=== PATIENT | female | born 1985 | race Asian ===

== ENCOUNTER → 2017-02-16 | Outpatient (CLI) | payer OTHER ==
[~2017-02-16] MED LIST: FERR325T51 PO; PRENTAB26 PO
== END | disposition home or self-care (01) ==
LOC: C.PAPS 14:10
PROVIDERS: ATTEND Physician Assistant
DX: Z01.419 Encounter for gynecological examination (general) (routine) without abnormal findings (principal)

== ENCOUNTER 2019-01-27 19:08 | Inpatient (IN) ==
--- OUTSIDE RECORDS SUMMARY | 2019-01-27 19:10 | External Medical Summary | Continuity of Care Document ---
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) Exposure to communicable disease (V01.9) (Z20.9) Allergies and Adverse Reactions No Known Drug Allergies (Allergy) Medications Iron TABS Refills: 0 DHA Complete CAPS Refills: 0 TABS Refills: 0 Procedures Non-stress test Date: 27-Jan-2019 Non-stress test Date: 27-Jan-2019 History of Oral Surgery Status: Complete d Immunizations Influenza (Whole) On: 26-Jun-2015 10:25 Lot #: [id number], [employer] Tdap (Adacel) On: 01-Oct-2015 10:47 Lot #: [id number], [employer] Fluzone Quadrivalent 0.5 ML Intramuscular Suspension On: May-2018 16:18 Lot #: [id number], [employer]FI PASTEUR Tdap (Adacel) On: 01-Nov-2018 10:09 Lot #: [id number], [employer]OFI PASTEUR Family History Father Family history of diabetes mellitus (V18.0) (Z83.3) Status: Active Mother Family history of delivery (644.21) (O60.10X0) Statu s: Active Sister Family history of gestational diabetes (V18.0) (Z83.3) Statu s: Active Plan of Treatment Planned Encounters Appointment; Arun Isidro M.D. Start: 02-Feb-2019 10:40 Request Planned Observations Planned Goals not documented Results Non-stress test (Pending) Laboratory: In House 2-May-2019 11:02 Non-Stress Test Reactive Vital Signs 27-Jan-2019 10:24 Systolic 104 mm[Hg] Diastolic 64 mm[Hg] BMI Calculated 26.68 kg/m2 Weight 136.6 lb Height 60 in BSA Calculated 1.59 m2 20-Jan-2019 10:10 Systolic 110 mm[Hg] Diastolic 70 mm[Hg] BMI Calculated 26.44 kg/m2 Weight 135.4 lb Height 60 in BSA Calculated 1.58 m2 13-Jan-2019 9:50 Systolic 96 mm[Hg] Diastolic 56 mm[Hg] BMI Calculated 26.4 kg/m2 Weight 135.2 lb Height 60 in BSA Calculated 1.58 m2 05-Jan-2019 15:15 Systolic 110 mm[Hg] Diastolic 68 mm[Hg] BMI Calculated 26.37 kg/m2 Weight 135 lb Height 60 in BSA Calculated 1.58 m2 29-Dec-2018 9:07 Systolic 104 mm[Hg] Diastolic 62 mm[Hg] BMI Calculated 26.33 kg/m2 Weight 134.8 lb Height 60 in BSA Calculated 1.58 m2 Encounters Appointment; Abbie Power DO 27-Jan-2019 11:00 Encounter Diagnosis: Problem not documented Appointment; OB SC1, Nonstress Test 27-Jan-2019 10:30 Encounter Diagnosis: Problem not documented Appointment; Ayaka Merritt M.D. 20-Jan-2019 10:10 Encounter Diagnosis: Problem not documented Appointment; Cathy Cantu M.D. 13-Jan-2019 10:00 Encounter Diagnosis: Problem not documented Appointment; Abbie Power DO 05-Jan-2019 14:50 Encounter Diagnosis: Problem not documented Appointment; Nidia Sanders M.D. 29-Dec-2018 9:00 Encounter Diagnosis: Problem not documented Appointment; Pb Freeman M.D. 15-Dec-2018 9:50 Encounter Diagnosis: Problem not documented Appointment; Tatiana Burgos M.D. 29-Nov-2018 9:30 Encounter Diagnosis: Problem not documented Appointment; Abbie Power DO 15-Nov-2018 10:50 Encounter Diagnosis: Problem not documented Appointment; Tatiana Burgos M.D. 01-Nov-2018 9:50 Encounter Diagnosis: Problem not documented Appointment; Cathy Cantu M.D. 04-Oct-2018 9:40 Encounter Diagnosis: Problem not documented Appointment; Tatiana Burgos M.D. 06-Sep-2018 10:20 Encounter Diagnosis: Problem not documented Appointment; OBGYN SC1, Ultrasound 06-Sep-2018 9:15 Encounter Diagnosis: Problem not documented Appointment; Pb Freeman M.D. 09-Aug-2018 10:30 Encounter Diagnosis: Problem not documented Appointment; Nohemi Hein M.D. 12-Jul-2018 10:30 Encounter Diagnosis: Problem not documented Appointment; OB SC1, Procedure Rm 14-Jun-2018 15:30 Encounter Diagnosis: Problem not documented Appointment; Abbie Power, DO 14-Jun-2018 15:30 Encounter Diagnosis: Problem not documented Appointment; OB SC1, Nursing Station 07-Jun-2018 8:45 Encounter Diagnosis: Problem not documented Appointment; Nohemi Hein M.D. 12-Oct-2017 13:30 Encounter Diagnosis: Problem not documented Appointment; Nidia Whiteside PA-C 09-Jul-2017 13:20 Encounter Diagnosis: Problem not documented Appointment; Dmitry Mccloud Au.D.|[facility] 09-Jul-2017 13:00 Encounter Diagnosis: Problem not documented Appointment; Nidia Whiteside PA-C 23-Jun-2017 15:00 Encounter Diagnosis: Problem not documented Appointment; Dmitry Mccloud Au.D.|[facility] 23-Jun-2017 14:40 Encounter Diagnosis: Problem not documented Appointment; Laura Francis PA-C 16-Feb-2017 10:10 Encounter Diagnosis: Problem not documented Appointment; Arun Isidro M.D. 02-Feb-2019 10:40 Encounter Diagnosis: Problem not documented"
[2019-01-27] MEDS ORDERED: OXYTOCIN 30 UNITS/500 ML BAG IV PRN (19:35)
[2019-01-27] MEDS ORDERED: PENICILLIN G POTASSIUM 6 MU in DEXTROSE 5% 250 ML IV STA (19:35)
[2019-01-27] MEDS ORDERED: LACTATED RINGER'S 1,000 ML IV PRN ×2 (19:35→21:37)
--- NOTE | 2019-01-27 19:48 | History & Physical Report ---
Date of Service January 27, 2019 Assessment & Plan (1) Normal labor: IUP at 40+ week in active labor & GBS (+) Start PCN G now undecided about epidural at this time anticipate vaginal Present on Admission?: Yes History of Present Illness Primary Care Provider: NO PCP Patient is a 33 yo female EDC 01/25/19 who presents at 40+ weeks in active labor. contractions have been about 6-7 minutes apart for over 2 hours. (+) bloody show, (-)SPROM uncomplicated O positive rubella Immune RPR NR HBsAg negative HIV negative GBS positive GC/chlam negative cell free DNA- low risk anatomy scan -normal Allergies Allergy/AdvReac Type Severity Reaction Status Date / Time No Known Allergies Allergy Unverified 01/02/16 20:22 Home Medications Home Medications Medication Instructions Recorded Confirmed Type FERROUS SULFATE (IRON SUPPLEMENT) 1 tab PO DAILY 30 Days #30 tab 01/02/16 History Multivit/Min/Iron/Fol Ac/Pren 1 tab PO DAILY #0 tab 01/02/16 History ( Vitamin) Patient History Social History Preferred Language: Cameroonian Communication Ability: Effective 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 Beliefs That Will Affect Care: None marital status: Current Living Situation: Family Other Information That Helps Us Care for You: No Feels Safe at Home: Yes Safety Concerns: Feels Safe At This Time Smoking Status: Never smoker Do You Dip or Chew Tobacco: No Second Hand Exposure: No Tobacco Cessation Education Requested by Patient: No Hx Alcohol Use: No Hx Substance Use: No Review of Systems All systems reviewed & are unremarkable except as noted in HPI & below Physical Exam Constitutional: WD/WN, vitals as above Respiratory: normal respiratory effort, lungs clear to auscultation Cardiovascular: RRR, no murmur, no edema Gastrointestinal (Abdomen): normal bowel sounds, soft, nontender, no hepatosplenomegaly Genitourinary: OB Exam Abdomen: + vertex, + estimated weight (6-7 pounds) and + regular contractions (6-7 minutes) Manual OB Exam: + cervical dilation 5 cm, + cervical effacement 90% and + station -2 OB Exam Monitor Tracing: + external FHT monitor used, + external uterine monitor used, + category I and + normal FHT variability Results & Data Vital Signs (Past 12 Hours) Vital Signs Temp Resp 01/27/19 19:13 97.7 F 18
[2019-01-27 19:59] LABS: Hematocrit (blood only) 36.4 % (37-47); Hemoglobin 12.6 g/dL (12.0-16.0); Mean Platelet Volume 10.3 fL (7.4-10.4); Platelet Count 135 K/uL (130-400); RDW Coefficient of Variation 14.4 % (11.5-14.5); RDW Standard Deviation 49.8 fL (36.4-46.3); Red Blood Count 3.83 M/uL (4.2-5.4); White Blood Count 7.05 K/uL (4.8-10.8)
[2019-01-27 20:01] LABS: Mean Corpuscular Hgb Conc 34.6 g/dL (32-36)
[2019-01-27] MEDS: LACTATED RINGER'S 1,000 ML IV SCH ×2 (20:15→20:49)
[2019-01-27] MEDS ORDERED: BUPIVACAINE 0.25% 30 ML VIAL ONE (20:42)
[2019-01-27] MEDS ORDERED: ePHEDrine sulfate 50 MG/ML AMP ONE (20:42)
[2019-01-27] MEDS ORDERED: fentaNYL citrate 100 MCG/2 ML VIAL ONE (20:43)
[2019-01-27] MEDS ORDERED: fentaNYL 2MCG/ML ROPIV 1.25MG/ML 100 ML BAG EPI ONE (20:44)
--- NOTE | 2019-01-27 21:16 | Anesthesiology Consultation ---
Date of Service January 27, 2019 Assessment & Plan Chart Review Chart Review: Patient NOT seen in Pre Admission Testing and Acceptable Risk for Labor Epidural Consults Requested none ASA ASA2 Proposed Anesthesia Anesthesia Type: Labor Epidural Risk / Benefits Reviewed With: PT / POA / Parent / Guardian, Accepts Plan and Informed Consent Obtained History Height/Weight Height: 5 ft Weight: 61.689 kg Allergies Allergy/AdvReac Type Severity Reaction Status Date / Time No Known Allergies Allergy Unverified 01/02/16 20:22 Medications Home Medications Medication Instructions Recorded Confirmed Last Taken ferrous sulfate See Rx Instructions .ROUTE .COMPLEX 01/27/19 01/27/19 01/26/19 12:00 vit-iron fum-folic ac 1 tab PO DAILY 01/27/19 01/27/19 01/27/19 08:00 [ Vitamin] Active Medications Generic Name Dose Route Start Last Admin Trade Name Freq PRN Reason Stop Dose Admin Lactated Ringer's 1,000 mls @ 999 mls/hr 01/27/19 19:35 01/27/19 20:50 Lr IV 02/26/19 19:34 Infused .Q1H1M PRN Infusion Pre-Anesthesia Lactated Ringer's 1,000 mls @ 125 mls/hr 01/27/19 19:45 01/27/19 20:49 Lr IV 01/29/19 19:44 125 mls/hr .Q8H KAY Administration NPO Date Last Intake of Fluids: 01/27/19 Time Last Intake of Fluids: 17:30 Date Last Intake of Solids: 01/27/19 Time Last Intake of Solids: 17:30 Past Medical History Medical History History of tooth extraction Exercise / Class Metabolic Activity II 4-5 Yardwork/Stairs/Walk up hill Past Anesthesia History No Hx of Anesthesia Complications and No Family Hx of Anesthesia Complications History of PONV No Hx of PONV and No Hx of Motion Sickness Social History Smoking Status: Never smoker Do You Dip or Chew Tobacco: No Hx Alcohol Use: No Hx Substance Use: No substance use type: does not use Physical Exam Vital Signs Last Vital Signs Temp 36.5 C 01/27/19 19:13 Pulse 78 01/27/19 21:11 Resp 18 01/27/19 19:13 BP 108/71 01/27/19 21:00 Pulse Ox 100 01/27/19 21:11 Constitutional not obese ENMT Mouth: + small oral opening; no dentition abnormality Thyromental Distance: < 3.5 Finger Breadths Mallampati Class: II Neck normal visual inspection and trachea midline; neck extension not limited Respiratory normal respiratory effort Auscultation: lungs clear to auscultation bilaterally Cardiovascular Rate/Rhythm: regular rate and regular rhythm Heart Sounds: no murmur Musculoskeletal Spine: lumbar spine normal to inspection; normal cervical ROM Neurologic moves all extremities Motor/Sensory: no sensory deficit Psychiatric Orientation: alert and oriented x 3 Testing Laboratory Results 01/27/19 19:50
[2019-01-27] MEDS ORDERED: NALBUPHINE HCL INJ 10 MG/ML AMP IV PRN (21:37)
[2019-01-27] MEDS ORDERED: PROMETHAZINE HCL 25 MG in SODIUM CHLORIDE 0.9% 50 ML IV PRN (21:37)
[2019-01-27] MEDS ORDERED: ONDANSETRON INJ 2 MG/ML 2 ML VIAL IV PRN (21:37)
[2019-01-27] MEDS ORDERED: NALOXONE HCL 0.4 MG/1 ML VIAL/CARP IV PRN (21:37)
[2019-01-27] MEDS ORDERED: DiphenhydrAMINE HCL 50 MG/ML VIAL IV PRN (21:37)
[2019-01-27] MEDS ORDERED: ePHEDrine sulfate 50 MG/ML AMP IV PRN (21:37)
[2019-01-27] MEDS ORDERED: NALOXONE HCL 1 MG in SODIUM CHLORIDE 0.9% 1000ML 1,000 ML IV PRN (21:37)
[2019-01-27] MEDS ORDERED: fentaNYL 2MCG/ML ROPIV 1.25MG/ML 100 ML BAG EPI PRN (21:37)
[2019-01-27] MEDS: PENICILLIN G POTASSIUM 3 MU in DEXTROSE 5% 100 ML IV PRN (23:41)
[2019-01-28] MEDS: PENICILLIN G POTASSIUM 3 MU in DEXTROSE 5% 100 ML IV PRN (03:40)
[2019-01-28] MEDS ORDERED: OXYTOCIN 30 UNITS/500 ML BAG IV PRN (04:55)
[2019-01-28] MEDS ORDERED: OXYCODONE/ACETAMINOPHEN 5mg/325mg TAB PO PRN (04:55)
[2019-01-28] MEDS ORDERED: ACETAMINOPHEN 325 MG TAB PO PRN (04:55)
[2019-01-28] MEDS ORDERED: BENZOCAINE 20% AER SPR 82.5 GM CAN EXT PRN (04:55)
[2019-01-28] MEDS ORDERED: SUPERCREAM 0.870% 15 GM JAR EXT PRN (04:55)
[2019-01-28] MEDS ORDERED: BISACODYL 10 MG SUPP PR PRN (04:55)
[2019-01-28] MEDS ORDERED: DIPHTHERIA/TETANUS/PERTUSSIS 0.5 ML SYR/VIAL IM ONE (04:55)
[2019-01-28] MEDS ORDERED: HYDROCORTISONE ACETATE 25 MG SUPP PR PRN (04:55)
--- NOTE | 2019-01-28 06:19 | Delivery Summary ---
DATE OF OPERATION: 01/28/2019 The patient is a 33-year-old female G2, P1-0-0-1, EDC of 01/25/2019, who presented at 40 plus weeks in active labor. She received effective epidural analgesia. After 2 doses of penicillin because she was group B strep positive, her membranes were ruptured for clear fluid. She then progressed to full dilation and pushed effectively over intact perineum for delivery of a viable male . The mouth and nasopharynx were suctioned upon delivery of the head. The rest of the delivered easily and was placed on the mother's abdomen for further attention and drying. The was vigorously crying and moving all 4 limbs upon delivery. The cord was then clamped and cut prior to 30 seconds as it was short. Placenta was expressed intact with a 3-vessel cord. There was heavier than usual bleeding and this was controlled by dilute Pitocin. The second-degree perineal laceration was repaired with 3-0 chromic in the usual fashion. Estimated blood loss was 500 mL. Mother and were doing well after delivery. I attest to the content of the Intraoperative Record and any orders documented therein. Any exception s are noted below.
--- NOTE | 2019-01-28 08:35 | Anesthesia Procedure Note ---
Date of Service January 28, 2019 Anesthesia Post Epidural Note Vital Signs Vital Signs: Temp Pulse Resp BP Pulse Ox 36.7 C 115 H 18 93/63 L 96 01/28/19 01:00 01/28/19 07:04 01/28/19 01:30 01/28/19 07:04 01/28/19 04:31 Notes Mental Status: alert / awake / arousable and participated in evaluation Nausea / Vomiting: adequately controlled Pain: adequately controlled Airway Patency, RR, SpO2: stable & adequate BP & HR: stable & adequate Hydration State: stable & adequate Neuraxial Anesthesia: was administered and sensory block is resolving Anesthetic Complications: no major complications apparent Epidural: Removed without complications and With tip intact
[2019-01-28] MEDS: DOCUSATE SODIUM 100 MG CAP PO SCH ×2 (08:58→20:05)
[2019-01-28] MEDS: PRENATAL VITAMIN 1 TAB PO SCH (08:58)
[2019-01-28] MEDS: IBUPROFEN 600 MG TAB PO PRN ×3 (08:59→21:30)
--- NOTE | 2019-01-29 06:14 | Obstetrical Progress Note ---
Date of Service <Crystal Willard MD - Last Filed: 01/29/19 06:17> January 29, 2019 Assessment & Plan <Crystal Willard MD - Last Filed: 01/29/19 06:17> (1) care following vaginal delivery: 33yo with at 40+ weeks. PPD #1 -Routine care -Ambulation encouraged -Pain control Subjective <Crystal Willard MD - Last Filed: 01/29/19 06:17> Ambulation: ambulating normally Voiding: no voiding problems Diet Tolerance:: regular diet Lochia:: Moderate Feeding Type:: breast feeding Respiratory: no dyspnea Cardiovascular: no chest pain, no palpitations, no lightheadedness and no calf pain Gastrointestinal: no nausea and no vomiting Neurologic: + headache(s) Physical Exam <Crystal Willard MD - Last Filed: 01/29/19 06:17> Vital Signs (Past 24 Hours) Last Vital Signs Temp 36.6 C 01/29/19 00:04 Pulse 83 01/29/19 00:04 Resp 18 01/29/19 00:04 BP 100/60 01/29/19 00:04 Pulse Ox 98 01/28/19 15:50 Respiratory normal respiratory effort, lungs clear to auscultation Cardiovascular Rate/Rhythm: regular rate and regular rhythm Extremities: no calf tenderness and no pedal edema Genitourinary OB Exam Abdomen: + fundal height Fundus: + firm and + relation to umbilicus (1 above) Results & Data <Crystal Willard MD - Last Filed: 01/29/19 06:17> Medications Administered Home Medications ferrous sulfate See Rx Instructions .ROUTE .COMPLEX 01/27/19 [History Confirmed 01/27/19] vit-iron fum-folic ac [ Vitamin] 1 tab PO DAILY 01/27/19 [History Confirmed 01/27/19] Active Medications Acetaminophen (Tylenol) 650 mg PO Q6H PRN PRN Reason: Pain/CHENG/Fever Stop: 02/27/19 04:54 Benzocaine (Dermoplast Pain Relieving [place]) 1 appln EXT PRN PRN PRN Reason: Perineal Discomfort Stop: 02/27/19 04:54 Last Admin: 01/28/19 07:30 Dose: 82.5 appln Documented by: Bisacodyl (Dulcolax) 5 mg PO 2000 [facility] Stop: 01/29/19 20:01 Bisacodyl (Dulcolax) 10 mg MT DAILY PRN PRN Reason: No BM on 2nd post- day Stop: 02/27/19 04:54 Cocaine HCl (Supercream 0.870%) 1 gm EXT BID PRN PRN Reason: Hemorrhoidal Inflammation Stop: 02/11/19 04:54 Last Admin: 01/28/19 07:30 Dose: 1 gm Documented by: Docusate Sodium (Colace) 100 mg PO BID [facility] Stop: 02/27/19 08:59 Last Admin: 01/28/19 20:05 Dose: 100 mg Documented by: Hydrocortisone (Anusol Hc) 25 mg MT BID PRN PRN Reason: Hemorrhoidal Inflammation Stop: 02/27/19 04:54 Oxytocin (Pitocin) 30 units in 500 mls @ 333.333 mls/hr IV .Q1H30M PRN; Protocol PRN Reason: Bleeding Control Stop: 02/27/19 04:54 Last Admin: 01/28/19 04:35 Dose: 59.94 units/hr, 999 mls/hr Documented by: Ibuprofen (Motrin) 600 mg PO Q4H PRN PRN Reason: Pain/CHENG/Cramping/Fever Stop: 02/27/19 04:54 Last Admin: 01/28/19 21:30 Dose: 600 mg Documented by: Oxycodone/Acetaminophen (Percocet 5mg/325mg) 1 tab PO Q4H PRN PRN Reason: Pain not relieved by... Stop: 02/11/19 04:54 Prenat Multivit/Label Fuser Tender/Iron/Folic Ac ( Vitamin) 1 tab PO QAM [facility] Stop: 02/27/19 08:59 Last Admin: 01/28/19 08:58 Dose: 1 tab Documented by: <Abbie Power DO - Last Filed: 01/29/19 06:37> Co-Signing Physician Notes Resident Physician Supervision Note: I was present with the resident physician during the history and exam. I discussed the case with the resident and agree with the findings and plan as documented in the note. Any exceptions or clarifications are listed here: PPD#1 doing well. Routine care. Documented By: DO ANDRES Kennedy
[2019-01-29 06:49] LABS: Hematocrit (blood only) 28.7 % (37-47); Hemoglobin 9.9 g/dL (12.0-16.0); Mean Corpuscular Hgb Conc 34.5 g/dL (32-36); Mean Corpuscular Volume 95.3 fL (80-100); Mean Platelet Volume 9.9 fL (7.4-10.4); Platelet Count 109 K/uL (130-400); RDW Coefficient of Variation 14.6 % (11.5-14.5); RDW Standard Deviation 50.5 fL (36.4-46.3); Red Blood Count 3.01 M/uL (4.2-5.4); White Blood Count 12.58 K/uL (4.8-10.8)
[2019-01-29] MEDS: DOCUSATE SODIUM 100 MG CAP PO SCH ×2 (09:36→20:09)
[2019-01-29] MEDS: PRENATAL VITAMIN 1 TAB PO SCH (09:36)
[2019-01-29] MEDS: IBUPROFEN 600 MG TAB PO PRN (09:40)
[2019-01-29] MEDS ORDERED: BISACODYL 5 MG TABEC PO SCH (20:00)
[2019-01-30 06:20] LABS: Hematocrit (blood only) 27.8 % (37-47); Hemoglobin 9.6 g/dL (12.0-16.0)
--- NOTE | 2019-01-30 07:58 | Obstetrical Progress Note ---
Date of Service January 30, 2019 Assessment & Plan (1) care following vaginal delivery: - doing well _ H/H stable - desires d/c - instructions given - f/u in 6 weeks Subjective Ambulation: ambulating normally Diet Tolerance:: regular diet Feeding Type:: breast feeding Physical Exam Vital Signs (Past 24 Hours) Last Vital Signs Temp 98.2 F 01/29/19 23:05 Pulse 82 01/29/19 23:05 Resp 18 01/29/19 23:05 BP 100/62 01/29/19 23:05 Pulse Ox 99 01/29/19 16:00 Gastrointestinal (Abdomen) Fundus firm below U Musculoskeletal (-) deep calf tenderness
[2019-01-30] MEDS: DOCUSATE SODIUM 100 MG CAP PO SCH (09:10)
[2019-01-30] MEDS: PRENATAL VITAMIN 1 TAB PO SCH (09:10)
== END 2019-01-30 18:30 | disposition home or self-care (01) | DRG 807 ==
LOC: OPB 19:08 → 4S1 19:08 → 4S2 01-28 07:30